=== PATIENT | female | born 1955 | race Caucasian/White ===

== ENCOUNTER → 2018-05-14 | Outpatient (CLI) | payer OTHER | END | disposition home or self-care (01) | LOC: LAB 15:15 → LAB SHORT 15:15 | PROVIDERS: Physician Assistant | DX: Z12.4 Encounter for screening for malignant neoplasm of cervix (principal) | CPT/HCPCS: G0145 ==

== ENCOUNTER 2018-07-09 09:41 | Day surgery (SDC) | payer OTHER ==
[~2018-07-09] VITALS: Ht 165.1 cm; Wt 77.3 kg
== END 2018-07-09 11:44 | disposition home or self-care (01) ==
LOC: ORSCSDS 09:41
PROVIDERS: Internal Medicine Gastroenterology
PROC: 0DJD8ZZ Inspection of Lower Intestinal Tract, Via Natural or Artificial Opening Endoscopic (ICD-10-PCS; principal; 2018-07-09 11:00)
DX: Z12.11 Encounter for screening for malignant neoplasm of colon (principal); K64.8 Other hemorrhoids; K57.30 Diverticulosis of large intestine without perforation or abscess without bleeding; F41.9 Anxiety disorder, unspecified
CPT/HCPCS: J2704; J7120

== ENCOUNTER → 2018-07-17 | Outpatient (CLI) | payer OTHER | END | disposition home or self-care (01) | LOC: LAB SHORT 15:05 → LAB EV 15:05 | DX: N39.0 Urinary tract infection, site not specified (principal) | CPT/HCPCS: 87086 ==

== ENCOUNTER → 2019-12-25 | Outpatient (CLI) | payer OTHER | END | disposition home or self-care (01) | LOC: LAB EV 15:07 → LAB SHORT 15:07 | DX: N39.0 Urinary tract infection, site not specified (principal) | CPT/HCPCS: 87086 ==

== ENCOUNTER → 2020-06-10 | Outpatient (CLI) | payer OTHER | END | disposition home or self-care (01) | LOC: PLD 14:00 → LAB SHORT 14:00 | DX: R35.0 Frequency of micturition (principal) | CPT/HCPCS: 87086 ==

== ENCOUNTER 2020-07-26 08:13 | Day surgery (SDC) | payer OTHER ==
[~2020-07-26] VITALS: Wt 81.2 kg
--- NOTE | 2020-07-26 09:23 | NUR ---
Ambulatory in Day Surgery History, Chart, Medications and Allergies reviewed before start of procedure.Patient confirms NPO status and agrees with scheduled PROCEDURE. PT A&O X4. DENIES ANY NEW ONSET CHEST PAIN. PT REPORTS TAKING SCHEDULED METOPROLOL 25 MG 07/25/20 @ 2200.
--- NOTE | 2020-07-26 09:59 | NUR ---
Patient up to Ambulate independently. Gait steady.DENIES CHEST PAIN/DISCOMFORT WELL LIGHT HEADED OR DIZZINESS. Discharge instructions reviewed with patient. Patient verbalizes understanding. Copy given to patient to take home.PT AMBULATORY TO DISCHARGE TO PRIVATE VEHICLE FOR RIDE HOME.
== END 2020-07-26 23:15 | disposition home or self-care (01) ==
LOC: MHTC 08:13 → ORSCMMR 08:13 → ORD 08:30 → CT 09:00 → ORSCMMR 23:15
DX: I47.2 Ventricular tachycardia (principal); R07.89 Other chest pain; F41.9 Anxiety disorder, unspecified; I70.0 Atherosclerosis of aorta; I25.10 Atherosclerotic heart disease of native coronary artery without angina pectoris; E78.5 Hyperlipidemia, unspecified; E78.1 Pure hyperglyceridemia; N28.89 Other specified disorders of kidney and ureter
CPT/HCPCS: 75574; Q9967

== ENCOUNTER → 2020-09-06 | Outpatient (CLI) | payer OTHER | LOC: LAB EV 15:47 → LAB SHORT 15:47 | DX: N39.0 Urinary tract infection, site not specified (principal) | CPT/HCPCS: 87077; 87086; 87186 ==

== ENCOUNTER → 2020-10-15 | Outpatient (CLI) | payer OTHER | END | disposition home or self-care (01) | LOC: LAB 14:51 → LAB SHORT 14:51 | DX: N39.0 Urinary tract infection, site not specified (principal) | CPT/HCPCS: 87077; 87086; 87186 ==

== ENCOUNTER → 2021-01-23 | Outpatient (CLI) | payer OTHER | END | disposition home or self-care (01) | LOC: LAB SHORT 10:34 | DX: N39.0 Urinary tract infection, site not specified (principal) | CPT/HCPCS: 87077; 87086; 87186 ==

== ENCOUNTER → 2023-03-25 | Outpatient (CLI) | payer OTHER | LOC: LAB SHORT 14:17 → LAB 14:17 | DX: N39.0 Urinary tract infection, site not specified (principal) | CPT/HCPCS: 87086 ==

== ENCOUNTER → 2023-07-29 | Outpatient (CLI) | payer OTHER ==
[2023-07-29 22:11] LABS: Bacterial Vaginosis PCR Negative (NEGATIVE); Candida Group, PCR NOT DETECTED (NOT DETECT); Candida glabrata-krusei, PCR NOT DETECTED (NOT DETECT)
== END | disposition home or self-care (01) ==
LOC: LAB SHORT 13:20 → LAB 13:20
PROVIDERS: Family Medicine
DX: R10.2 Pelvic and perineal pain (principal)
CPT/HCPCS: 87481; 87661; 87801